=== PATIENT | male | born 1960 | race Caucasian/White ===

== ENCOUNTER 2018-12-20 09:49 | Emergency (ER) | payer BC, OTHER ==
[~2018-12-20] VITALS: Ht 177.8 cm; Wt 81.7 kg
[2018-12-20 12:00] LABS: HEMOGLOBIN 15.7 gm/dL (14.0-18.0); MCH 34.1 pg (26.0-34.0); MCV 97.5 fL (80.0-100.0); RBC 4.61 mil/uL (4.50-6.00); RDW 13.5 % (10.5-14.5); WBC 10.2 thou/uL (4.0-11.0)
[2018-12-20 12:09] LABS: CALCIUM 9.3 mg/dL (8.5-10.1); CREATININE 0.9 mg/dL (0.7-1.3); POTASSIUM 4.3 mmol/L (3.5-5.1)
[2018-12-20 12:15] LABS: TOTAL BILIRUBIN 0.5 mg/dL (<0.1-1.0); TOTAL PROTEIN 7.9 g/dL (6.4-8.2)
[2018-12-20] MEDS ORDERED: CARISOPRODOL 3350 MG PO (12:47)
[2018-12-20] MEDS ORDERED: NORCO 5-325 TA1 EACH PO (12:47)
[2018-12-20] MEDS ORDERED: AZITHROMYCIN 2250 MG PO (12:49)
[2018-12-20 12:54] VITALS: BP 136/85
== END 2018-12-20 13:10 | disposition home or self-care (01) ==
LOC: ER 09:49
PROVIDERS: Emergency Medicine
DX: S22.42XA Multiple fractures of ribs, left side, initial encounter for closed fracture (principal); F17.210 Nicotine dependence, cigarettes, uncomplicated; W00.0XXA Fall on same level due to ice and snow, initial encounter; Y93.89 Activity, other specified; Y92.89 Other specified places as the place of occurrence of the external cause; Y99.8 Other external cause status